=== PATIENT | male | born 1945 | race Caucasian/White ===

== ENCOUNTER 2019-10-25 05:53 | Inpatient (IN) ==
[2019-10-25] MEDS ORDERED: Vancomycin 1,000 MG, Sodium Chloride IRRigation 1,000 ML IR ONE (06:00)
[2019-10-25] MEDS ORDERED: CeFAZolin Syr 2,000MG/20 ML 2,000 MG/20 ML SYRINGE IVPB ONE (06:14)
[2019-10-25] MEDS ORDERED: Ringers Solution, Lactated 1,000 ML IVC SCH (06:15)
[2019-10-25] MEDS ORDERED: Heparin 1,000 UNITS/500 mL 1,000 ML ONE (07:09)
[2019-10-25] MEDS ORDERED: *HR* FentaNYL (PF) 100 MCG/2 ML VIAL ONE ×2 (07:18→09:02)
[2019-10-25] MEDS ORDERED: Lidocaine -MPF 2% 2 ML VIAL ONE (07:18)
[2019-10-25] MEDS ORDERED: *HR* Succinylcholine 200 MG/10 ML VIAL IVP ONE (07:18)
[2019-10-25] MEDS ORDERED: *HR* Rocuronium Bromide 50 MG/5 ML VIAL ONE (07:18)
[2019-10-25] MEDS ORDERED: *HR* Propofol 200 MG/20 ML VIAL IVP ONE (07:18)
[2019-10-25] MEDS ORDERED: *HR* Phenylephrine 10 MG/ML VIAL ONE (07:22)
[2019-10-25] MEDS ORDERED: EPINEPHrine 1 MG/ML VIAL ONE (07:23)
[2019-10-25] MEDS ORDERED: Heparin 1,000 UNITS/500 mL 0 ML ONE (07:59)
[2019-10-25] MEDS ORDERED: EPHEDrine 50 MG/ML VIAL ONE (08:19)
[2019-10-25] MEDS ORDERED: Dexamethasone 4 MG/ML VIAL ONE (08:43)
[2019-10-25] MEDS ORDERED: Ondansetron 4 MG/2 ML VIAL ONE ×2 (08:43→10:48)
[2019-10-25] MEDS ORDERED: *HR* Heparin 5,000 UNIT/ML VIAL ONE (08:59)
[2019-10-25] MEDS ORDERED: Acetaminophen IV 1,000 MG/100 ML INFUS..BTL ONE (10:14)
[2019-10-25] MEDS ORDERED: Protamine Sulfate 50 MG/5 ML VIAL IVP ONE (10:35)
[2019-10-25] MEDS ORDERED: Vancomycin 1,000 MG VIAL ONE (10:39)
[2019-10-25] MEDS ORDERED: Neostigmine Methylsulfate 3 MG/3 ML SYRINGE ONE (11:07)
[2019-10-25] MEDS ORDERED: *HR* HYDROmorphone PF 0.5 MG/0.5 ML SYRINGE IVP PRN (11:36)
[2019-10-25] MEDS ORDERED: Ondansetron 4 MG/2 ML VIAL IVP ONE (11:36)
[2019-10-25] MEDS ORDERED: *HR* OxyCODONE Immed Rel 5 MG TABLET PO PRN (13:29)
[2019-10-25] MEDS ORDERED: Nitroglycerin 0.4 MG TAB.SUBL SL PRN (13:29)
[2019-10-25] MEDS ORDERED: *HR* Labetalol 20 MG/4 ML SYRINGE IVP PRN (13:29)
[2019-10-25] MEDS ORDERED: Naloxone 0.4 MG/ML INJ IVP PRN (13:29)
[2019-10-25] MEDS ORDERED: 0.9 % Sodium Chloride 1,000 ML IVC SCH (13:29)
[2019-10-25] MEDS ORDERED: Patient Taking Own Medication 1 EACH SQ SCH (13:29)
[2019-10-25] MEDS ORDERED: Acetaminophen 325 MG TABLET PO PRN (13:29)
[2019-10-25] MEDS ORDERED: Ondansetron 4 MG/2 ML VIAL IVP PRN (13:29)
[2019-10-25] MEDS ORDERED: 0.9 % Sodium Chloride 500 ML IVC SCH (14:50)
[2019-10-25] MEDS ORDERED: 0.9 % Sodium Chloride 500 ML ONE (14:57)
[2019-10-25] MEDS: Ipratropium 1 PUFF INHALER IH SCH ×3 (15:50→21:09)
[2019-10-25] MEDS: ceFAZolin 2,000 MG in 0.9 % Sodium Chloride 100 ML IVPB SCH ×2 (15:51→23:57)
[2019-10-25] MEDS: *HR* Metoprolol 5 MG/5 ML VIAL IVP SCH (17:47)
[2019-10-25] MEDS: *HR* HYDROcodone/Acet 5/325 mg TABLET PO PRN (19:43)
[2019-10-25] MEDS: SALMETEROL IH SCH (21:00)
[2019-10-25] MEDS: FLUTICASONE IH SCH (21:00)
[2019-10-26] MEDS: *HR* Metoprolol 5 MG/5 ML VIAL IVP SCH ×2 (00:05→06:07)
[2019-10-26] MEDS ORDERED: *HR* Heparin 5,000 UNIT/ML VIAL SQ SCH ×2 (06:00)
[2019-10-26 06:07] LABS: Basophils % 0.3 %; Eosinophils # 0.1 K/mcL (0.0-0.6); Eosinophils % 2.2 %; Hematocrit 26.3 % (37.5-50.1); Immature Granulocytes % 0.3 % (0-4); Lymphocytes # 1.1 K/mcL (0.6-4.6); Lymphocytes % 17.2 %; Mean Corpuscular HGB Conc 33.5 g/dL (31.6-35.5); Mean Corpuscular Hemoglobin 31.5 pg (28.0-33.3); Mean Corpuscular Volume 94.3 fL (83.0-100.0); Monocytes # 0.8 K/mcL (0.0-1.3); Monocytes % 11.9 %; Neutrophils # 4.4 K/mcL (1.6-8.9); Platelet Count 283 K/mcL (140-400); Red Blood Count 2.79 M/mcL (4.19-5.50); Segmented Neutrophils % 68.1 %; White Blood Count 6.4 K/mcL (4.3-11.1)
[2019-10-26 06:10] LABS: Hemoglobin 8.8 g/dL (12.9-16.9)
[2019-10-26 06:45] LABS: BUN/Creatinine Ratio 21 (6-26); Blood Urea Nitrogen 15 mg/dL (8-23); Calcium 8.6 mg/dL (8.6-10.3); Carbon Dioxide 25 mEq/L (23-29); Chloride 99 mEq/L (98-107); Glucose 93 mg/dL (70-105); Osmolality,Calculated 271 (280-300); Potassium 4.4 mEq/L (3.5-5.1); Sodium 130 mEq/L (136-145); eGFR For African Americans > 60 (> 60); eGFR For Non-African Americans > 60 (> 60)
[2019-10-26] MEDS: FLUTICASONE IH SCH (07:38)
[2019-10-26] MEDS: SALMETEROL IH SCH (07:38)
[2019-10-26] MEDS: *HR* HYDROcodone/Acet 5/325 mg TABLET PO PRN (07:43)
[2019-10-26] MEDS ORDERED: atenoloL 25 MG TABLET PO SCH (09:00)
[2019-10-26] MEDS ORDERED: Isosorbide MONOnitrate (24 HR) 30 MG TAB.ER.24H PO SCH (09:00)
[2019-10-26] MEDS ORDERED: Aspirin Enteric Coated 81 MG Tablet PO SCH (09:00)
[2019-10-26] MEDS ORDERED: polyethylene glycoL 3350 17 GM POWD.PACK PO SCH (09:00)
[2019-10-26] MEDS ORDERED: lisinopriL 10 MG TABLET PO SCH (09:00)
[2019-10-26 11:12] VITALS: BP 103/52
[2019-10-26] MEDS: Ipratropium 1 PUFF INHALER IH SCH (11:25)
== END 2019-10-26 14:50 | disposition home or self-care (01) | DRG 271 ==
LOC: SAMDAY 05:53 → 3NENU 12:35
PROVIDERS: ADMIT Surgery; ATTEND Surgery

== ENCOUNTER 2019-12-19 06:23 | Inpatient (IN) ==
[~2019-12-19 06:23] MED LIST: Vancomycin 1,000 MG, Sodium Chloride IRRigation 1,000 ML IR ONE
[2019-12-19] MEDS ORDERED: CeFAZolin Syr 2,000MG/20 ML 2,000 MG/20 ML SYRINGE IVPB ONE (06:53)
[2019-12-19] MEDS ORDERED: Ringers Solution, Lactated 1,000 ML IVC SCH (07:00)
[2019-12-19] MEDS ORDERED: *HR* Vasopressin 20 UNIT/ML VIAL ONE (07:34)
[2019-12-19] MEDS ORDERED: Heparin 1,000 UNITS/500 mL 500 ML ONE ×2 (07:36→07:38)
[2019-12-19] MEDS ORDERED: Lidocaine -MPF 4% 5 ML AMPUL ONE (07:40)
[2019-12-19] MEDS ORDERED: *HR* Phenylephrine 10 MG/ML VIAL ONE (07:43)
[2019-12-19] MEDS ORDERED: *HR* FentaNYL (PF) 100 MCG/2 ML VIAL ONE (07:43)
[2019-12-19] MEDS ORDERED: Dexamethasone 4 MG/ML VIAL ONE (07:43)
[2019-12-19] MEDS ORDERED: *HR* Remifentanil 2 MG VIAL IVP ONE (07:43)
[2019-12-19] MEDS ORDERED: *HR* Propofol 200 MG/20 ML VIAL IVP ONE (07:43)
[2019-12-19] MEDS ORDERED: Ondansetron 4 MG/2 ML VIAL ONE (07:43)
[2019-12-19] MEDS ORDERED: Lidocaine -MPF 2% 2 ML VIAL ONE ×2 (07:43→07:58)
[2019-12-19] MEDS ORDERED: *HR* Rocuronium Bromide 50 MG/5 ML VIAL ONE ×2 (07:43→09:23)
[2019-12-19] MEDS ORDERED: *HR* Labetalol 20 MG/4 ML SYRINGE IVP PRN ×2 (07:50→14:30)
[2019-12-19] MEDS ORDERED: *HR* HYDROmorphone (PF) 1 MG/ML SYRINGE IVP PRN (07:50)
[2019-12-19] MEDS ORDERED: *HR* Promethazine 25 MG/ML VIAL IVP PRN (07:50)
[2019-12-19] MEDS ORDERED: Ondansetron 4 MG/2 ML VIAL IVP PRN ×2 (07:50→14:30)
[2019-12-19] MEDS ORDERED: *HR* OxyCODONE Immed Rel 5 MG TABLET PO PRN ×3 (07:50→14:30)
[2019-12-19] MEDS ORDERED: *HR* Heparin 5,000 UNIT/ML VIAL ONE ×2 (08:00→10:41)
[2019-12-19] MEDS ORDERED: Vancomycin 1,000 MG, Sodium Chloride IRRigation 1,000 ML IR ONE (08:15)
[2019-12-19] MEDS ORDERED: Famotidine 20 MG/2 ML VIAL IVP ONE (08:15)
[2019-12-19] MEDS ORDERED: EPHEDrine 50 MG/ML VIAL ONE (11:21)
[2019-12-19] MEDS ORDERED: *HR* HYDROMORPHONE 2 MG/ML VIAL ONE (11:39)
[2019-12-19] MEDS ORDERED: *HR* HYDROcodone/Acet 5/325 mg TABLET PO PRN (14:30)
[2019-12-19] MEDS ORDERED: polyethylene glycoL 3350 17 GM POWD.PACK PO PRN (14:30)
[2019-12-19] MEDS ORDERED: Acetaminophen 325 MG TABLET PO PRN ×2 (14:30)
[2019-12-19] MEDS ORDERED: Naloxone 0.4 MG/ML INJ IVP PRN (14:30)
[2019-12-19] MEDS ORDERED: 0.9 % Sodium Chloride 1,000 ML IVC SCH (14:30)
[2019-12-19] MEDS ORDERED: *HR* Metoprolol 5 MG/5 ML VIAL IVP SCH (15:00)
[2019-12-19] MEDS: CeFAZolin 2 GM/120 ML BAG IVPB SCH ×2 (15:10→23:27)
[2019-12-19] MEDS: Ipratropium 1 PUFF INHALER IH SCH ×2 (15:30→21:52)
[2019-12-19] MEDS: *HR* Metoprolol 5 MG/5 ML VIAL IVP SCH ×2 (18:08→18:50)
[2019-12-19] MEDS: *HR* HYDROcodone/Acet 5/325 mg TABLET PO PRN ×2 (18:30→21:10)
[2019-12-19] MEDS: lisinopriL 10 MG TABLET PO SCH (21:12)
[2019-12-19] MEDS ORDERED: SALMETEROL IH SCH (22:00)
[2019-12-19] MEDS ORDERED: FLUTICASONE IH SCH (22:00)
[2019-12-20] MEDS: Ipratropium 1 PUFF INHALER IH SCH (04:07)
[2019-12-20 04:33] LABS: Basophils % 0.4 %; Eosinophils % 0.1 %; Hematocrit 27.5 % (37.5-50.1); Hemoglobin 9.1 g/dL (12.9-16.9); Immature Granulocytes % 0.3 % (0-4); Lymphocytes # 1.3 K/mcL (0.6-4.6); Lymphocytes % 18.5 %; Mean Corpuscular HGB Conc 33.1 g/dL (31.6-35.5); Mean Corpuscular Hemoglobin 31.7 pg (28.0-33.3); Mean Corpuscular Volume 95.8 fL (83.0-100.0); Mean Platelet Volume 9.2 fL (9.4-12.4); Monocytes # 0.9 K/mcL (0.0-1.3); Monocytes % 13.5 %; Neutrophils # 4.7 K/mcL (1.6-8.9); Platelet Count 252 K/mcL (140-400); Red Blood Count 2.87 M/mcL (4.19-5.50); Red Cell Distribution Width 13.6 % (11.5-14.5); Segmented Neutrophils % 67.2 %
[2019-12-20 04:53] LABS: BUN/Creatinine Ratio 20 (6-26); Blood Urea Nitrogen 13 mg/dL (8-23); Calcium 8.5 mg/dL (8.6-10.3); Carbon Dioxide 21 mEq/L (23-29); Chloride 101 mEq/L (98-107); Glucose 87 mg/dL (70-105); Osmolality,Calculated 271 (280-300); Potassium 4.1 mEq/L (3.5-5.1); Sodium 131 mEq/L (136-145); eGFR For African Americans > 60 (> 60); eGFR For Non-African Americans > 60 (> 60)
[2019-12-20] MEDS ORDERED: *HR* Heparin 5,000 UNIT/ML VIAL SQ SCH ×2 (06:00)
[2019-12-20] MEDS: *HR* Metoprolol 5 MG/5 ML VIAL IVP SCH ×2 (06:54)
[2019-12-20] MEDS: *HR* HYDROcodone/Acet 5/325 mg TABLET PO PRN (06:54)
[2019-12-20] MEDS: lisinopriL 10 MG TABLET PO SCH (07:49)
[2019-12-20 07:54] VITALS: BP 170/61
[2019-12-20] MEDS ORDERED: Aspirin Enteric Coated 81 MG Tablet PO SCH (09:00)
[2019-12-20] MEDS ORDERED: atenoloL 25 MG TABLET PO SCH (09:00)
[2019-12-20] MEDS ORDERED: Isosorbide MONOnitrate (24 HR) 30 MG TAB.ER.24H PO SCH (09:00)
== END 2019-12-20 10:12 | disposition home or self-care (01) | DRG 271 ==
LOC: SAMDAY 06:23 → 2NNU 08:01 → ICNU 12:03 → 2NNU 14:27
PROVIDERS: ADMIT Surgery; ATTEND Surgery

== ENCOUNTER 2020-04-24 12:42 | Inpatient (IN) ==
[2020-04-24 13:24] LABS: Basophils % 0.6 %; Eosinophils # 0.2 K/mcL (0.0-0.6); Eosinophils % 3.3 %; Hematocrit 29.5 % (37.5-50.1); Hemoglobin 9.6 g/dL (12.9-16.9); Immature Granulocytes % 0.2 % (0-4); Lymphocytes # 1.1 K/mcL (0.6-4.6); Lymphocytes % 21.3 %; Mean Corpuscular HGB Conc 32.5 g/dL (31.6-35.5); Mean Corpuscular Hemoglobin 29.1 pg (28.0-33.3); Mean Corpuscular Volume 89.4 fL (83.0-100.0); Mean Platelet Volume 8.5 fL (9.4-12.4); Monocytes # 0.7 K/mcL (0.0-1.3); Monocytes % 14.1 %; Neutrophils # 3.1 K/mcL (1.6-8.9); Platelet Count 305 K/mcL (140-400); Red Cell Distribution Width 15.2 % (11.5-14.5); Segmented Neutrophils % 60.5 %; White Blood Count 5.1 K/mcL (4.3-11.1)
[2020-04-24 13:31] LABS: INR 1.1; Prothrombin Time 12.2 Seconds (9.4-12.1)
[2020-04-24 13:44] LABS: BUN/Creatinine Ratio 23 (6-26); Blood Urea Nitrogen 21 mg/dL (8-23); Calcium 8.6 mg/dL (8.6-10.3); Carbon Dioxide 26 mEq/L (23-29); Chloride 96 mEq/L (98-107); Glucose 116 mg/dL (70-105); Osmolality,Calculated 270 (280-300); Potassium 4.5 mEq/L (3.5-5.1); Sodium 128 mEq/L (136-145); Troponin I < 0.03 ng/mL (< 0.04); eGFR For African Americans > 60 (> 60); eGFR For Non-African Americans > 60 (> 60)
[2020-04-24 14:28] LABS: Adenovirus Not Detected (Not Detect); Coronavirus 229E Not Detected (Not Detect); Coronavirus HKU1 Not Detected (Not Detect); Coronavirus NL63 Not Detected (Not Detect); Coronavirus OC43 Not Detected (Not Detect); SARS-CoV-2 Not Detected (Not Detect)
[2020-04-24 14:29] LABS: Bordetella Pertussis Not Detected (Not Detect); Chlamydophila pneumoniae Not Detected (Not Detect); Human Metapneumovirus Not Detected (Not Detect); Human Rhinovirus/Enterovirus Not Detected (Not Detect); Influenza A Subtype 2009 H1 Not Detected (Not Detect); Influenza B Not Detected (Not Detect); Mycoplasma pneumoniae Not Detected (Not Detect); Parainfluenza Virus 1 Not Detected (Not Detect); Parainfluenza Virus 2 Not Detected (Not Detect); Parainfluenza Virus 3 Not Detected (Not Detect); Parainfluenza Virus 4 Not Detected (Not Detect); Respiratory Syncytial Virus Not Detected (Not Detect)
[2020-04-24] MEDS ORDERED: Naloxone 0.4 MG/ML INJ IVP PRN (16:22)
[2020-04-24] MEDS ORDERED: polyethylene glycoL 3350 17 GM POWD.PACK PO PRN (16:31)
[2020-04-24] MEDS: Ipratropium/Albuterol Neb 3 ML IH SCH ×2 (17:53→20:11)
[2020-04-24] MEDS: 0.9 % Sodium Chloride 1,000 ML IVC SCH (19:35)
[2020-04-24] MEDS: Ipratropium 1 PUFF INHALER IH SCH (20:10)
[2020-04-24] MEDS: Budesonide/Formoterol 160/4.5 1 PUFF INH IH SCH ×2 (20:11→20:16)
[2020-04-24] MEDS: lisinopriL 10 MG TABLET PO SCH (20:22)
[2020-04-24] MEDS ORDERED: Perflutren Lipid Microsphere 1.3 ML in 0.9 % Sodium Chloride 8.7 ML IVP PRN (21:35)
[2020-04-25] MEDS: Ipratropium/Albuterol Neb 3 ML IH SCH ×6 (00:42→19:57)
[2020-04-25] MEDS: Ipratropium 1 PUFF INHALER IH SCH (00:44)
[2020-04-25] MEDS ORDERED: *HR* Labetalol 20 MG/4 ML SYRINGE IVP ONE ×2 (03:47→23:46)
[2020-04-25 05:50] LABS: Basophils % 0.6 %; Eosinophils # 0.1 K/mcL (0.0-0.6); Eosinophils % 1.9 %; Hematocrit 31.2 % (37.5-50.1); Hemoglobin 10.3 g/dL (12.9-16.9); Immature Granulocytes % 0.4 % (0-4); Lymphocytes # 1.1 K/mcL (0.6-4.6); Lymphocytes % 22.5 %; Mean Corpuscular Hemoglobin 29.4 pg (28.0-33.3); Mean Corpuscular Volume 89.1 fL (83.0-100.0); Mean Platelet Volume 8.8 fL (9.4-12.4); Monocytes # 0.6 K/mcL (0.0-1.3); Monocytes % 11.8 %; Platelet Count 338 K/mcL (140-400); Segmented Neutrophils % 62.8 %; White Blood Count 4.8 K/mcL (4.3-11.1)
[2020-04-25] MEDS ORDERED: Isosorbide MONOnitrate (24 HR) 30 MG TAB.ER.24H PO SCH (09:00)
[2020-04-25] MEDS: lisinopriL 10 MG TABLET PO SCH ×2 (09:41→21:19)
[2020-04-25] MEDS: 0.9 % Sodium Chloride 1,000 ML IVC SCH (09:42)
[2020-04-25] MEDS: Aspirin Enteric Coated 81 MG Tablet PO SCH (09:42)
[2020-04-25] MEDS: atenoloL 25 MG TABLET PO SCH (09:42)
[2020-04-25] MEDS: *HR* Heparin 5,000 UNIT/ML VIAL SQ SCH ×2 (15:41→21:19)
[2020-04-25 21:57] LABS: Adenovirus Not Detected (Not Detect); Bordetella Pertussis Not Detected (Not Detect); Chlamydophila pneumoniae Not Detected (Not Detect); Coronavirus 229E Not Detected (Not Detect); Coronavirus HKU1 Not Detected (Not Detect); Coronavirus NL63 Not Detected (Not Detect); Coronavirus OC43 Not Detected (Not Detect); Human Metapneumovirus Not Detected (Not Detect); Human Rhinovirus/Enterovirus Not Detected (Not Detect); Influenza A Subtype 2009 H1 Not Detected (Not Detect); Influenza B Not Detected (Not Detect); Mycoplasma pneumoniae Not Detected (Not Detect); Parainfluenza Virus 1 Not Detected (Not Detect); Parainfluenza Virus 2 Not Detected (Not Detect); Parainfluenza Virus 3 Not Detected (Not Detect); Parainfluenza Virus 4 Not Detected (Not Detect); Respiratory Syncytial Virus Not Detected (Not Detect); SARS-CoV-2 Not Detected (Not Detect)
[2020-04-26] MEDS: Ipratropium/Albuterol Neb 3 ML IH SCH ×6 (00:04→19:51)
[2020-04-26] MEDS: 0.9 % Sodium Chloride 1,000 ML IVC SCH ×2 (00:14→14:43)
[2020-04-26] MEDS ORDERED: Regadenoson 0.4 MG/5 ML SYRINGE IVP ONE (06:18)
[2020-04-26] MEDS: *HR* Heparin 5,000 UNIT/ML VIAL SQ SCH ×3 (06:20→21:02)
[2020-04-26] MEDS: Aspirin Enteric Coated 81 MG Tablet PO SCH (09:36)
[2020-04-26] MEDS: lisinopriL 10 MG TABLET PO SCH ×2 (09:37→21:02)
[2020-04-26] MEDS: atenoloL 25 MG TABLET PO SCH (09:37)
[2020-04-26 10:29] LABS: Prothrombin Time 12.1 Seconds (9.4-12.1)
[2020-04-26 10:43] LABS: BUN/Creatinine Ratio 26 (6-26); Blood Urea Nitrogen 16 mg/dL (8-23); Calcium 8.7 mg/dL (8.6-10.3); Carbon Dioxide 25 mEq/L (23-29); Chloride 99 mEq/L (98-107); Glucose 81 mg/dL (70-105); Osmolality,Calculated 272 (280-300); Sodium 131 mEq/L (136-145); eGFR For African Americans > 60 (> 60); eGFR For Non-African Americans > 60 (> 60)
[2020-04-26 11:13] LABS: Basophils % 0.5 %; Eosinophils # 0.1 K/mcL (0.0-0.6); Eosinophils % 1.9 %; Hematocrit 30.4 % (37.5-50.1); Hemoglobin 10.2 g/dL (12.9-16.9); Immature Granulocytes % 0.3 % (0-4); Lymphocytes # 0.9 K/mcL (0.6-4.6); Lymphocytes % 14.9 %; Mean Corpuscular HGB Conc 33.6 g/dL (31.6-35.5); Mean Corpuscular Hemoglobin 30.1 pg (28.0-33.3); Mean Corpuscular Volume 89.7 fL (83.0-100.0); Mean Platelet Volume 8.8 fL (9.4-12.4); Monocytes # 0.8 K/mcL (0.0-1.3); Monocytes % 12.2 %; Neutrophils # 4.3 K/mcL (1.6-8.9); Platelet Count 300 K/mcL (140-400); Red Blood Count 3.39 M/mcL (4.19-5.50); Red Cell Distribution Width 15.1 % (11.5-14.5); Segmented Neutrophils % 70.2 %; White Blood Count 6.2 K/mcL (4.3-11.1)
[2020-04-27] MEDS: Ipratropium/Albuterol Neb 3 ML IH SCH ×3 (00:21→07:29)
[2020-04-27 01:45] LABS: Basophils % 0.5 %; Eosinophils # 0.2 K/mcL (0.0-0.6); Eosinophils % 4.2 %; Hematocrit 28.4 % (37.5-50.1); Hemoglobin 9.1 g/dL (12.9-16.9); Immature Granulocytes % 0.2 % (0-4); Lymphocytes # 1.3 K/mcL (0.6-4.6); Lymphocytes % 22.9 %; Mean Corpuscular Hemoglobin 28.5 pg (28.0-33.3); Mean Platelet Volume 8.8 fL (9.4-12.4); Monocytes # 0.8 K/mcL (0.0-1.3); Monocytes % 13.8 %; Neutrophils # 3.3 K/mcL (1.6-8.9); Platelet Count 299 K/mcL (140-400); Red Blood Count 3.19 M/mcL (4.19-5.50); Segmented Neutrophils % 58.4 %; White Blood Count 5.7 K/mcL (4.3-11.1)
[2020-04-27 02:02] LABS: BUN/Creatinine Ratio 31 (6-26); Blood Urea Nitrogen 15 mg/dL (8-23); Calcium 8.2 mg/dL (8.6-10.3); Carbon Dioxide 23 mEq/L (23-29); Chloride 100 mEq/L (98-107); Glucose 89 mg/dL (70-105); Osmolality,Calculated 270 (280-300); Potassium 3.7 mEq/L (3.5-5.1); Sodium 130 mEq/L (136-145); eGFR For African Americans > 60 (> 60); eGFR For Non-African Americans > 60 (> 60)
[2020-04-27] MEDS: 0.9 % Sodium Chloride 1,000 ML IVC SCH (04:51)
[2020-04-27] MEDS: *HR* Heparin 5,000 UNIT/ML VIAL SQ SCH (04:52)
[2020-04-27 07:03] VITALS: BP 117/58
[2020-04-27] MEDS: lisinopriL 10 MG TABLET PO SCH (09:20)
[2020-04-27] MEDS: atenoloL 25 MG TABLET PO SCH (09:20)
[2020-04-27] MEDS: Aspirin Enteric Coated 81 MG Tablet PO SCH (09:20)
[2020-04-27 15:20] LABS: A.galactomannan Ag Index 0.07
[2020-04-28 14:14] LABS: QuantiFERON Mitogen minus NIL 9.17 IU/mL
[2020-04-28 14:59] LABS: QuantiFERON NIL 0.02 IU/mL; QuantiFERON-TB Gold In-Tube NEGATIVE (Negative)
== END 2020-04-27 10:11 | disposition home or self-care (01) | DRG 190 ==
LOC: 2ANU 12:42 → EMEROOARM 12:42 → SUATTDRO 15:23 → 2ANU 15:58
PROVIDERS: ADMIT Internal Medicine; ATTEND Internal Medicine

== ENCOUNTER 2021-04-16 12:58 | Inpatient (IN) ==
[~2021-04-16 12:58] MED LIST changes: +Vancomycin 1,000 MG, 0.9 % Sodium Chloride 1,000 ML IR ONE
[2021-04-16] MEDS ORDERED: CeFAZolin Syr 2,000MG/20 ML 2,000 MG/20 ML SYRINGE IVPB ONE (13:14)
[2021-04-16] MEDS ORDERED: Ringers Solution, Lactated 1,000 ML IVC SCH (13:15)
[2021-04-16] MEDS ORDERED: *HR* FentaNYL (PF) 100 MCG/2 ML VIAL ONE (13:25)
[2021-04-16] MEDS ORDERED: *HR* Propofol 200 MG/20 ML VIAL IVP ONE (13:25)
[2021-04-16] MEDS ORDERED: Ondansetron 4 MG/2 ML VIAL ONE (13:26)
[2021-04-16] MEDS ORDERED: *HR* Rocuronium Bromide 50 MG/5 ML VIAL ONE (13:26)
[2021-04-16] MEDS ORDERED: Lidocaine -MPF 2% 5 ML VIAL ONE (13:26)
[2021-04-16] MEDS ORDERED: Lidocaine -MPF 4% 5 ML AMPUL ONE (13:30)
[2021-04-16] MEDS ORDERED: Heparin 1,000 UNITS/500 mL 500 ML ONE ×2 (13:37→14:07)
[2021-04-16] MEDS ORDERED: *HR* Phenylephrine 10 MG/ML VIAL ONE (13:51)
[2021-04-16] MEDS ORDERED: *HR* Remifentanil 1 MG VIAL IVP ONE (13:54)
[2021-04-16] MEDS ORDERED: *HR* Heparin 5,000 UNIT/ML VIAL ONE (13:57)
[2021-04-16] MEDS ORDERED: NiCARdipine 2.5 MG/10 ML Syringe IVPB ONE (14:02)
[2021-04-16] MEDS ORDERED: Protamine Sulfate 50 MG/5 ML VIAL IVP ONE ×2 (14:06→21:49)
[2021-04-16] MEDS ORDERED: Bupivacaine-MPF 0.25% 10 ML VIAL ONE (14:06)
[2021-04-16] MEDS ORDERED: *HR* Etomidate 40 MG/20 ML VIAL IVP ONE (14:41)
[2021-04-16] MEDS ORDERED: *HR* OxyCODONE Immed Rel 5 MG TABLET PO PRN ×2 (14:49→20:16)
[2021-04-16] MEDS ORDERED: *HR* HYDROmorphone 2 MG TABLET PO PRN (14:49)
[2021-04-16] MEDS ORDERED: Famotidine 20 MG/2 ML VIAL IVP ONE (14:49)
[2021-04-16] MEDS ORDERED: *HR* HYDROmorphone (PF) 1 MG/ML SYRINGE IVP PRN (14:49)
[2021-04-16] MEDS ORDERED: Acetaminophen IV 1,000 MG/100 ML BAG IVPB ONE (14:49)
[2021-04-16] MEDS ORDERED: Pregabalin 75 MG CAPSULE PO ONE (14:49)
[2021-04-16] MEDS ORDERED: *HR* Labetalol 20 MG/4 ML SYRINGE IVP PRN ×2 (14:49→20:16)
[2021-04-16] MEDS ORDERED: EPHEDrine 50 MG/ML VIAL ONE (17:23)
[2021-04-16] MEDS ORDERED: Sugammadex Sodium 200 MG/2 ML VIAL IV ONE (18:34)
[2021-04-16] MEDS ORDERED: 0.9 % Sodium Chloride 1,000 ML IVC SCH (20:16)
[2021-04-16] MEDS ORDERED: Naloxone 0.4 MG/ML INJ IVP PRN (20:16)
[2021-04-16] MEDS ORDERED: Albuterol 2.5 MG/3 ML NEBULIZER IH PRN (20:16)
[2021-04-16] MEDS ORDERED: Nitroglycerin 0.4 MG TAB.SUBL SL PRN (20:16)
[2021-04-16] MEDS ORDERED: Acetaminophen 325 MG TABLET PO PRN (20:16)
[2021-04-16] MEDS ORDERED: polyethylene glycoL 3350 17 GM POWD.PACK PO PRN (20:16)
[2021-04-16] MEDS ORDERED: *HR* HYDROcodone/Acet 5/325 mg TABLET PO PRN (20:16)
[2021-04-16] MEDS: Ondansetron 4 MG/2 ML VIAL IVP PRN (21:38)
[2021-04-16] MEDS: CeFAZolin 2 GM/120 ML BAG IVPB SCH (22:39)
[2021-04-16] MEDS: Ipratropium 1 PUFF INHALER IH SCH (23:50)
[2021-04-17] MEDS: *HR* Metoprolol 5 MG/5 ML VIAL IVP SCH ×5 (00:06→23:02)
[2021-04-17] MEDS: Ipratropium 1 PUFF INHALER IH SCH ×4 (03:55→22:36)
[2021-04-17] MEDS: *HR* Heparin 5,000 UNIT/ML VIAL SQ SCH ×2 (05:14→17:42)
[2021-04-17] MEDS ORDERED: *HR* Heparin 5,000 UNIT/ML VIAL SQ SCH (06:00)
[2021-04-17] MEDS: CeFAZolin 2 GM/120 ML BAG IVPB SCH (07:37)
[2021-04-17] MEDS: Ondansetron 4 MG/2 ML VIAL IVP PRN (07:39)
[2021-04-17] MEDS ORDERED: *HR* Promethazine 25 MG/ML VIAL IM ONE (09:20)
[2021-04-17] MEDS: DULERA IH SCH ×2 (10:44→20:35)
[2021-04-17] MEDS: Isosorbide MONOnitrate (24 HR) 30 MG TAB.ER.24H PO SCH (15:38)
[2021-04-17] MEDS: lisinopriL 5 MG TABLET PO SCH ×2 (15:38→20:35)
[2021-04-17] MEDS: Aspirin Enteric Coated 81 MG Tablet PO SCH (15:38)
[2021-04-17] MEDS: Cyanocobalamin (B-12) 1,000 MCG TABLET PO SCH (15:38)
[2021-04-17] MEDS: atenoloL 25 MG TABLET PO SCH (15:38)
[2021-04-18] MEDS: Ipratropium 1 PUFF INHALER IH SCH ×2 (03:14→11:14)
[2021-04-18] MEDS: *HR* Metoprolol 5 MG/5 ML VIAL IVP SCH (05:39)
[2021-04-18] MEDS: *HR* Heparin 5,000 UNIT/ML VIAL SQ SCH (05:41)
[2021-04-18] MEDS: Cyanocobalamin (B-12) 1,000 MCG TABLET PO SCH (08:53)
[2021-04-18] MEDS: Aspirin Enteric Coated 81 MG Tablet PO SCH (08:53)
[2021-04-18] MEDS: atenoloL 25 MG TABLET PO SCH (08:53)
[2021-04-18] MEDS: Isosorbide MONOnitrate (24 HR) 30 MG TAB.ER.24H PO SCH (08:53)
[2021-04-18] MEDS: lisinopriL 5 MG TABLET PO SCH (08:54)
[2021-04-18] MEDS: DULERA IH SCH (08:56)
[2021-04-18 11:11] VITALS: BP 105/40; PULSE 56; TEMP 98.7
[2021-04-18 11:16] VITALS: O2SAT 96
== END 2021-04-18 14:17 | disposition home or self-care (01) | DRG 39 ==
LOC: SAMDAY 12:58 → 2NNU 20:15
PROVIDERS: ADMIT Surgery; ATTEND Surgery